=== PATIENT | female | born 1940 | race Caucasian/White ===

== ENCOUNTER 2018-11-18 14:39 | Emergency (ER) | payer OTHER ==
[2018-11-18 14:49] VITALS: BP 136/61; PULSE 73; TEMP 98.1; BMI 34.7
--- NOTE | 2018-11-18 14:49 | PDOC ---
Rapid Medical Evaluation Time Seen by Provider: 11/18/18 14:46 Medical Evaluation: 11/18/18 14:46 I have performed a brief in-person evaluation of this patient. The patient presents with a chief complaint of: fall early tu morning Pertinent physical exam findings: markedly swollen left hand with ecchymosis and decreased ROM I have ordered the following: wrist/hand x-ray The patient will proceed to the ED for further evaluation.
--- NOTE | 2018-11-18 16:38 | PDOC ---
History of Present Illness - General Chief Complaint: Injury Stated Complaint: FALL/RT HAND SWOLLEN Time Seen by Provider: 11/18/18 14:46 History Source: Patient Exam Limitations: No Limitations - History of Present Illness Initial Comments: 11/18/18 16:32 HISTORY OF PRESENT ILLNESS: This 78-year-old woman presents emergency Department with reevaluation of left hand pain status post trip and fall at 3 AM on Thursday morning. Patient reports she was watching television and got up to put on her pajamas all child up with her legs in the pants lost her balance falling forward landing on an outstretched left hand. Patient reported increased pain over that time was concerned today with swelling to the left hand. Patient is right-hand dominant. No recent travel or sick contacts. PAST MEDICAL HISTORY: Denies past medical history SURGICAL HISTORY: Denies ALLERGIES: No known drug allergies REVIEW OF SYSTEMS General/Constitutional: Denies fever or chills. Denies weakness, weight change. HEENT: Denies change in vision. Denies ear pain or discharge. Denies sore throat. Cardiovascular: Denies chest pain or shortness of breath. Respiratory: Denies cough, wheezing, or hemoptysis. Gastrointestinal: Denies nausea, vomiting, diarrhea or constipation. Denies rectal bleeding. Genitourinary: Denies dysuria, frequency, or change in urination. Musculoskeletal: see HPI Skin and breasts: Denies rash or easy bruising. Neurologic: Denies headache, vertigo, loss of consciousness, or loss of sensation. Psychiatric: Denies depression or anxiety. Endocrine: Denies increased thirst. Denies abnormal weight change. Hematologic/Lymphatic: Denies anemia, easy bleeding, or history of blood clots. Allergic/Immunologic: Denies hives or skin allergy. Denies latex allergy. PHYSICAL EXAM General Appearance: Well-appearing, appropriately dressed. No apparent distress , no intoxication. Respiratory/Chest: Lungs CTAB. No shortness of breath, chest tenderness, respiratory distress, accessory muscle use. No crackles, rales, rhonchi, stridor , wheezing, dullness Cardiovascular: RRR. S1, S2. No JVD, murmur, bradycardia, tachycardia. Vascular Pulses: Radial (R): 2+, Radial (L): 2+ Musculoskeletal/Extremities: Swelling and ecchymosis present to the dorsum of the left hand. No palpable deformities, crepitus or step offs present. Patient with full range of motion of all digits of the left hand. Able to flex and extend wrist against resistance without difficulty. Capillary refills less than 2 seconds to all digits of the left hand. Full sensation present to fingers and thumb of the left hand. Neurologic: core drier II-XII intact. Fully oriented, alert. Appropriate mood/affect. Motor strength 5/5. No appreciable EOM palsy, facial droop or sensory deficit. Past History - Past Medical History Home Medications: Ambulatory Orders Aspirin [ASA -] 81 mg PO DAILY 11/18/18 Ezetimibe/Simvastatin [Ezetimibe-Simvastatin 10-40 mg] 1 each PO DAILY 11/18/18 Furosemide 40 mg PO DAILY 11/18/18 Nebivolol [Bystolic -] 5 mg PO DAILY 11/18/18 Olmesartan Medoxomil 40 mg PO DAILY 11/18/18 COPD: No - Suicide/Smoking/Psychosocial Hx Smoking History: Unknown if ever smoked Have you smoked in the past 12 months: No Information on smoking cessation initiated: No Hx Alcohol Use: No Drug/Substance Use Hx: No *Physical Exam - Vital Signs Last Vital Signs Temp Pulse Resp BP Pulse Ox 98.1 F 73 16 136/61 100 11/18/18 14:47 11/18/18 14:47 11/18/18 14:47 11/18/18 14:47 11/18/18 14:47 Medical Decision Making - Medical Decision Making 11/18/18 16:38 A/P: 78-year-old woman with right hand pain and swelling status post FOOSH Swelling present to the dorsum of the left hand Ecchymosis present to the dorsum of the left hand extending to the wrist Capillary refill is within normal limits to all digits of the left and Full active range of motion present to all digits and wrist against resistance. X-rays of the wrist as read by Dr. Foote: Mild degenerative arthritis with no fracture or acute bone or joint abnormalities. Syd wrap Discharge home to follow-up with orthopedics *DC/Admit/Observation/Transfer Diagnosis at time of Disposition: Contusion of wrist, left Qualifiers: Encounter type: initial encounter Qualified Code(s): S60.212A - Contusion of left wrist, initial encounter - Discharge Dispostion Disposition: HOME Condition at time of disposition: Stable Decision to Admit order: No - Referrals Referrals: Reza Alves MD [Staff Physician] - - Patient Instructions Additional Instructions: REST. Take Tylenol or Motrin as needed for pain. Follow manufacturers instructions for appropriate dosage. Apply ice for 20 minutes and removed for at least 20 minutes before reapplying the ice. Keep Syd wrap on your wrist as much as possible to help decrease some of the swelling control pain. Whenever possible keep your hand elevated to decrease swelling. You've been given the number for an orthopedist. If symptoms do not resolve within the next 7 days call the orthopedist for further evaluation. Return to emergency department for discoloration of the fingers, numbness or tingling to the fingers, worsening pain, or any other concerns. Thank you very much for choosing us to provide your emergent healthcare needs. - Post Discharge Activity
== END 2018-11-18 17:00 | disposition home or self-care (01) ==
LOC: JERFT 14:39
DX: S60.212A Contusion of left wrist, initial encounter (principal); W01.0XXA Fall on same level from slipping, tripping and stumbling without subsequent striking against object, initial encounter; Y93.89 Activity, other specified; Y92.013 Bedroom of single-family (private) house as the place of occurrence of the external cause; Y99.8 Other external cause status
CPT/HCPCS: 73110-TC-LT-FY; 73130-TC-LT-FY; 99281-25